=== PATIENT | male | born 1995 | race Caucasian/White ===

== ENCOUNTER → 2020-05-30 14:43 | Outpatient (CLI) | payer OTHER, SELFPAY ==
--- NOTE | 2020-05-30 14:47 | DI.CT.S_ITS ---
PROCEDURE: CT ABDOMEN PELVIS WO CON INDICATIONS: BLADDER PAIN TECHNIQUE: Noncontrast 5 mm thick sections acquired from the diaphragms to the symphysis. 5 mm coronal and sagittal reformats were then performed. For radiation dose reduction, the following was used: automated exposure control, adjustment of mA and/or kV according to patient size. COMPARISON: None. FINDINGS: Image quality: Excellent. Lung bases: Lung bases are clear. Heart size is normal. Solid organs: Liver: The liver has no mass or intrahepatic biliary ductal dilatation. The portal vein and hepatic veins are patent. Biliary: The gallbladder has no gallstones, pericholecystic fluid, gallbladder wall thickening, or surrounding inflammatory change. Pancreas: The pancreas has no mass or ductal dilatation. There is no surrounding inflammation. Spleen: Normal size. There are no masses. Adrenals: No hypertrophy or nodules. Kidneys: No obstructive calculus or hydronephrosis. No solid mass. No cystic mass. Peritoneum and bowel: The distal esophagus and stomach are normal. The small bowel has a normal caliber and appearance. The terminal ileum is normal. The large bowel has a normal caliber and appearance. The appendix contains high density consistent with a phlebolith. There is no wall thickening or surrounding inflammation. No free fluid or air. Nodes and vessels: No retroperitoneal or mesenteric adenopathy by size criteria. Aorta and inferior vena cava are normal in size. Miscellaneous: No abdominal wall mass or hernia. PELVIS: Genitourinary: The bladder has no wall thickening or mass. No bladder calcifications. Miscellaneous: No inguinal hernias or adenopathy. Bones: No suspicious bony lesions. No vertebral body compression fractures. IMPRESSION: 1. No acute abdominal or pelvic abnormality. 2. Normal appearing bladder. 3. No nephroureteral calculi. 4. The appendix contains a calcified appendicolith, however there is no evidence of acute appendicitis. Dictated by: Roosevelt Parada M.D. on 05/30/2020 at 15:09 Approved by: Roosevelt Parada M.D. on 05/30/2020 at 15:14
== END ==
PROVIDERS: PCP Urology; Referring Provider Urology; Visit Provider Urology
DX: R39.89 Other symptoms and signs involving the genitourinary system (principal)
CPT/HCPCS: 74176